=== PATIENT | male | born 1980 | race Caucasian/White ===

== ENCOUNTER 2016-06-07 15:35 | Emergency (ER) | payer SELFPAY ==
[2016-06-07] MEDS ORDERED: HYDROcodone/Acetaminophen 10/325 mg Tablet ONE (16:27)
[2016-06-07] MEDS ORDERED: Naproxen 500 MG TAB ONE (16:28)
[2016-06-07] MEDS ORDERED: Cephalexin 500 MG CAP ONE (16:28)
== END 2016-06-07 16:33 | disposition home or self-care (01) ==
LOC: MADERS 15:35
DX: K11.3 Abscess of salivary gland (principal); F41.9 Anxiety disorder, unspecified; F17.220 Nicotine dependence, chewing tobacco, uncomplicated
CPT/HCPCS: 99283

== ENCOUNTER 2017-08-28 10:21 | Emergency (ER) | payer SELFPAY ==
[2017-08-28] MEDS ORDERED: Naproxen 500 MG TAB ONE (10:47)
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
== END 2017-08-28 11:05 | disposition home or self-care (01) ==
LOC: MADERS 10:21
DX: S53.401A Unspecified sprain of right elbow, initial encounter (principal); S16.1XXA Strain of muscle, fascia and tendon at neck level, initial encounter; I11.0 Hypertensive heart disease with heart failure; J45.909 Unspecified asthma, uncomplicated; F41.9 Anxiety disorder, unspecified; F17.220 Nicotine dependence, chewing tobacco, uncomplicated; V89.2XXA Person injured in unspecified motor-vehicle accident, traffic, initial encounter

== ENCOUNTER 2021-04-23 14:04 | Emergency (ER) | payer SELFPAY ==
[2021-04-23] MEDS ORDERED: Boostrix 0.5 ML (Tdap) VIAL ONE (14:55)
[2021-04-23] MEDS ORDERED: Lidocaine 1%/Epinephrine 1:100K 10 ML VIAL ONE (14:55)
[2021-04-23] MEDS ORDERED: Ibuprofen 800 MG TAB ONE (17:03)
== END 2021-04-23 17:10 | disposition home or self-care (01) ==
LOC: MADERS 14:04
DX: S02.5XXA Fracture of tooth (traumatic), initial encounter for closed fracture (principal); S01.511A Laceration without foreign body of lip, initial encounter; I10 Essential (primary) hypertension; J45.909 Unspecified asthma, uncomplicated; F17.220 Nicotine dependence, chewing tobacco, uncomplicated; W26.8XXA Contact with other sharp object(s), not elsewhere classified, initial encounter
CPT/HCPCS: 12011; 90471; 90715